=== PATIENT | female | born 1930 | race Caucasian/White ===

== ENCOUNTER 2017-04-19 18:41 | Inpatient (IN) | payer MEDICARE ==
[~2017-04-19] VITALS: Ht 157.5 cm; Wt 52.3 kg
[~2017-04-19 18:41] MED LIST: ACET325T21 PO; CELE200C PO; CYCL1DRO EACHEYE; DOCU-109 PO; FLUT9.9S NS; FURO20TA3 PO; GABA-585 PO; GABA-586 PO; HYDR-2758 PO; LISI10TA2 PO; METO-269 PO; METO50TA2 PO; OMEG1CAP38 PO; ONDA4TAB12 PO; POLY17PO29 PO; ROPI0.5T PO; SERT25TA PO; WARF-78 PO; WARF2TAB PO
[2017-04-19 19:49] LABS: BASO % 0 % (0-3); EOS % 2 % (0-3); HEMATOCRIT 38.6 % (36.0-47.0); LYMPH # 1.2 x10^3/uL (1.0-4.8); LYMPH % 19 % (24-48); MEAN CORPUSCULAR HEMOGLOBIN 29 pg (25-35); MEAN CORPUSCULAR HGB CONC 34 g/dL (31-37); MEAN CORPUSCULAR VOLUME 85 fL (79-100); MONO % 11 % (0-9); NEUT % 67 % (31-73); PLATELET COUNT 149 x10^3/uL (140-400); RED BLOOD COUNT 4.54 x10^6/uL (3.50-5.40); RED CELL DISTRIBUTION WIDTH 17.2 % (11.5-14.5); WHITE BLOOD COUNT 6.5 x10^3/uL (4.0-11.0)
[2017-04-19 20:03] LABS: CREATININE 0.7 mg/dL (0.6-1.0); GFR 79.7; POTASSIUM 3.6 mmol/L (3.5-5.1)
[2017-04-19 20:09] LABS: ALBUMIN 3.4 g/dL (3.4-5.0); ALBUMIN/GLOBULIN RATIO 0.9 (1.0-1.7); TOTAL PROTEIN 7.2 g/dL (6.4-8.2)
[2017-04-19] MEDS ORDERED: CONTRAST GIVEN MC PRN (21:15)
--- NOTE | 2017-04-19 21:18 | ED.ADGEN ---
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 Symptoms are nonexertional, chest pain radiates to jaw. No fever chills, nausea vomiting or sweats. No increased leg pain or swelling. Denies cough, sore throat difficulty swallowing. Denies history of CAD or DVT or PE. History of proximal A. fib, patient is not currently anticoagulated. She is accompanied at bedside by daughter. Review of Systems Review of Systems Review symptoms as per history of present illness. Current Medications Current Medications Current Medications Medications (Trade) Dose Ordered Sig/Cinthia Start Time Stop Time Status Last Admin Dose Admin Fentanyl Citrate (Fentanyl 2ml Vial) 25 mcg 1X ONCE 04/19/17 21:15 04/19/17 21:16 UNV Info (Do NOT chart on this entry -- for MONITORING) 1 each PRN DAILY PRN 04/19/17 21:15 04/21/17 21:14 Iohexol (Omnipaque 300 Mg/ml) 75 ml 1X ONCE 04/19/17 21:30 04/19/17 21:31 Ondansetron HCl (Zofran) 4 mg 1X ONCE 04/19/17 21:15 04/19/17 21:16 UNV Allergies Allergies Allergies Coded Allergies Type Severity Reaction Last Updated Verified Penicillins Allergy Intermediate 10/21/16 Yes Sulfa (Sulfonamide Antibiotics) Allergy Intermediate rash 06/16/15 Yes Physical Exam Physical Exam Constitutional: Well developed, well nourished, no acute distress, non-toxic appearance. HENT: Normocephalic, atraumatic, bilateral external ears normal, oropharynx moist, no oral exudates, nose normal. Eyes: PERRLA, EOMI, conjunctiva normal, no discharge. Neck: Normal range of motion, no tenderness, supple, no stridor. Cardiovascular:Heart rate regular rhythm, no murmur Lungs & Thorax: Bilateral breath sounds clear to auscultation Abdomen: Bowel sounds normal, soft, no tenderness, no masses, no pulsatile masses. Skin: Warm, dry, no erythema, no rash. Back: No tenderness, no CVA tenderness. Extremities: No tenderness, no cyanosis, no clubbing, ROM intact, no edema. Neurologic: Alert and oriented X 3, weakness of hands and lower extremities. Psychologic: Affect normal, judgement normal, mood normal. Current Patient Data Vital Signs Vital Signs Date Time Temp Pulse Resp B/P (MAP) Pulse Ox O2 Delivery O2 Flow Rate FiO2 04/19/17 20:14 112 18 97/71 (80) 95 Room Air 04/19/17 19:12 98.2 98.2 Lab Values Laboratory Tests Test 04/19/17 19:40 White Blood Count 6.5 x10^3/uL (4.0-11.0) Red Blood Count 4.54 x10^6/uL (3.50-5.40) Hemoglobin 13.0 g/dL (12.0-15.5) Hematocrit 38.6 % (36.0-47.0) Mean Corpuscular Volume 85 fL (79-100) Mean Corpuscular Hemoglobin 29 pg (25-35) Mean Corpuscular Hemoglobin Concent 34 g/dL (31-37) Red Cell Distribution Width 17.2 % (11.5-14.5) H Platelet Count 149 x10^3/uL (140-400) Neutrophils (%) (Auto) 67 % (31-73) Lymphocytes (%) (Auto) 19 % (24-48) L Monocytes (%) (Auto) 11 % (0-9) H Eosinophils (%) (Auto) 2 % (0-3) Basophils (%) (Auto) 0 % (0-3) Neutrophils # (Auto) 4.4 x10^3uL (1.8-7.7) Lymphocytes # (Auto) 1.2 x10^3/uL (1.0-4.8) Monocytes # (Auto) 0.7 x10^3/uL (0.0-1.1) Eosinophils # (Auto) 0.1 x10^3/uL (0.0-0.7) Basophils # (Auto) 0.0 x10^3/uL (0.0-0.2) Sodium Level 138 mmol/L (136-145) Potassium Level 3.6 mmol/L (3.5-5.1) Chloride Level 101 mmol/L (98-107) Carbon Dioxide Level 29 mmol/L (21-32) Anion Gap 8 (6-14) Blood Urea Nitrogen 48 mg/dL (7-20) H Creatinine 0.7 mg/dL (0.6-1.0) Estimated GFR (Cockcroft-Gault) 79.7 BUN/Creatinine Ratio 69 (6-20) H Glucose Level 98 mg/dL (70-99) Calcium Level 10.0 mg/dL (8.5-10.1) Total Bilirubin 1.0 mg/dL (0.2-1.0) Aspartate Amino Transferase (AST) 19 U/L (15-37) Alanine Aminotransferase (ALT) 17 U/L (14-59) Alkaline Phosphatase 112 U/L (46-116) Creatine Kinase 23 U/L (26-192) L Troponin I Quantitative < 0.017 ng/mL (0.000-0.055) Total Protein 7.2 g/dL (6.4-8.2) Albumin 3.4 g/dL (3.4-5.0) Albumin/Globulin Ratio 0.9 (1.0-1.7) L Laboratory Tests 04/19/17 19:40 Laboratory Tests 04/19/17 19:40 EKG EKG [EKG: Atrial flutter, rate 113, no acute ST-T wave changes.] Radiology/Procedures Radiology/Procedures [Chest x-ray: Mild pulmonary vascular congestion. CTA chest pending:] Course & Med Decision Making Course & Med Decision Making Pertinent Labs and Imaging studies reviewed. (See chart for details) [Chest pain shortness of breath. Troponin, negative, EKG A. fib. Patient is not currently anticoagulated. Chest pain initially resolved prior to ED arrival, but recurred while in the emergency department. Case endorsed to [facility] at 2100 anticipated admission.] Dragon Disclaimer Dragon Disclaimer This electronic medical record was generated, in whole or in part, using a voice recognition dictation system. NATA SANCHES DO Apr 19, 2017 21:18
[2017-04-19] MEDS ORDERED: ONDANSETRON PF 4 MG/2 ML VIAL. IV ONE (21:30)
[2017-04-19] MEDS ORDERED: fentaNYL PF VIAL 100 MCG/2 ML VIAL IV ONE (21:30)
[2017-04-19] MEDS ORDERED: IOHEXOL 300 MG/ML 75 ML VIAL IV ONE (21:30)
--- NOTE | 2017-04-19 21:49 | RAD ---
Exam performed: CT pulmonary angiogram of the chest with contrast. Date: 04/19/2017. Comparison: None available Indication: Shortness of and tachycardia with chest pain Technique: Helical CT scan of the chest was performed during intravenous administration of 75 cc of Omnipaque 300. Sagittal and coronal MIP images were obtained and reviewed Findings: The structures at the thoracic inlet including both lobes of the thyroid gland appear normal. Pulmonary arterial opacification is adequate to evaluate for pulmonary embolus. There is no evidence for pulmonary embolism. Cardiomegaly. No pericardial effusion is seen. No mediastinal or hilar lymphadenopathy is seen. Diffuse atheromatous calcification of the aorta and coronary arteries is seen. Interrogation of lungs demonstrates patchy peripheral interstitial opacities seen in both lungs probably chronic. Streaky linear bibasilar opacities are seen. No infiltrates or pleural effusions are seen. No pulmonary nodules are detected. Upper abdominal structures appear unremarkable. Probable nonobstructing left renal cysts Osseous structures appear intact. Impression: 1. Study is negative for pulmonary embolism. 2. Cardiomegaly. 3. Chronic interstitial changes in both lungs. 4. Probable nonobstructing left renal calculi PQRS Compliance Statement: One or more of the following individualized dose reduction techniques were utilized for this examination: 1. Automated exposure control 2. Adjustment of the mA and/or kV according to patient size 3. Use of iterative reconstruction technique Electronically signed by: Dilia Connell MD (04/19/2017 9:46 PM)
[2017-04-19] MEDS ORDERED: ONDANSETRON PF 4 MG/2 ML VIAL. IV PRN (23:00)
[2017-04-19] MEDS ORDERED: fentaNYL PF VIAL 100 MCG/2 ML VIAL IV PRN (23:00)
[2017-04-20] VITALS (7 sets, daily range): BP systolic 95–109; BP diastolic 53–86
[2017-04-20] MEDS ORDERED: ASPIRIN ENTERIC COATED 325 MG TABLET.DR. PO ONE (01:00)
[2017-04-20] MEDS ORDERED: METO25TA4 PO (01:36)
[2017-04-20] MEDS ORDERED: AMIN30LI2 PO (01:36)
[2017-04-20] MEDS ORDERED: CHLO4TAB PO (01:36)
[2017-04-20] MEDS ORDERED: WARF4TAB68 PO (01:36)
[2017-04-20] MEDS ORDERED: FURO-69 PO (01:36)
[2017-04-20] MEDS ORDERED: DEXT15DR5 EACHEYE (01:36)
--- NOTE | 2017-04-20 06:28 | EKG ---
[facility] [address] [place] [address] Test Date: 2017-04-19 Test Time: 19:01:49 Pat Name: YESICA RANDLE Department: Room: 260 1 Gender: F Group Contract Analyst: : [id number] Requested By: NATA SANCHES Order Number: [id number] Reading MD: Jamilah Hernandez Measurements Intervals [place] Rate: 113 P: [place]: QRS: -42 QRSD: 114 T: 120 QT: 344 QTc: 478 Interpretive Statements ATRIAL FIB./FLUTTER WITH RAPID VENTRICULAR RESPONSE ABNORMAL LEFT AXIS DEVIATION LEFT ANTERIOR FASCICULAR BLOCK LVH WITH REPOLARIZATION ABNORMALITY RI6.01 Unconfirmed report Compared to ECG 09/23/2016 11:50:45 No significant changes Electronically Signed On 04-22-2017 18:53:35 CDT by Jamilah Hernandez
[2017-04-20 06:29] LABS: BASO % 0 % (0-3); EOS % 1 % (0-3); HEMATOCRIT 35.6 % (36.0-47.0); HEMOGLOBIN 12.2 g/dL (12.0-15.5); LYMPH # 0.7 x10^3/uL (1.0-4.8); LYMPH % 11 % (24-48); MEAN CORPUSCULAR HEMOGLOBIN 29 pg (25-35); MEAN CORPUSCULAR HGB CONC 34 g/dL (31-37); MEAN CORPUSCULAR VOLUME 85 fL (79-100); MONO % 10 % (0-9); NEUT % 77 % (31-73); PLATELET COUNT 137 x10^3/uL (140-400); RED BLOOD COUNT 4.21 x10^6/uL (3.50-5.40); RED CELL DISTRIBUTION WIDTH 17.5 % (11.5-14.5); WHITE BLOOD COUNT 6.5 x10^3/uL (4.0-11.0)
[2017-04-20 06:42] LABS: CALCIUM 9.3 mg/dL (8.5-10.1); CREATININE 0.7 mg/dL (0.6-1.0); GFR 79.7; POTASSIUM 3.8 mmol/L (3.5-5.1)
[2017-04-20 07:23] LABS: CHOLESTEROL/HDL RATIO 2.6
--- NOTE | 2017-04-20 07:58 | RAD ---
Indication shortness of air. A single view of the chest was obtained and is compared to an examination 09/23/2016. There are chronic background changes of emphysema or fibrosis similar to the previous exam. There is mild enlargement of the cardiac silhouette. An acute or focal process is not seen. There is no pleural fluid or pneumothorax. IMPRESSION: Chronic changes. No acute process is seen in the chest
--- NOTE | 2017-04-20 09:35 | PDOC2 ---
CARDIAC CONSULT DATE OF CONSULT Date of Consult DATE: 04/20/17 TIME: 09:26 REASON FOR CONSULT Reason for Consult: Chest Pain REFERRING PHYSICIAN Referring Physician: Dr. Viera SOURCE Source: Chart review, Patient HISTORY OF PRESENT ILLNESS HISTORY OF PRESENT ILLNESS This is an 86 yo female who present from [facility] with complaint of chest pain. 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 Patient reports chest pain began yesterday evening while she was sitting watching television. Located across the central chest. Unable to specifically described the pain other than she "felt yucky." Pain non- radiating. Denies any associated dizziness, diaphoresis, palpitations, orthopnea , or SOA. Does reports some mild nausea associated with abdominal pain. Pain worsened by taking a deep breath. Patient does have a history of PAFIB and chronic systolic heart failure with an LVEF of 30-35%. Does not routinely follow with it infrastructure engineer. PAST MEDICAL HISTORY Cardiovascular: AFIB (paroxysmal ), CHF (systolic ), HTN, Hyperlipidemia Pulmonary: Other (LEROY) CENTRAL NERVOUS SYSTEM: Other (Guillian Tokio syndrome ) GI: No pertinent hx Heme/Onc: Cancer (breat ) Hepatobiliary: No pertinent hx Psych: Depression Musculoskeletal: Osteoarthritis Rheumatologic: No pertinent hx Infectious disease: No pertinent hx ENT: No pertinent hx Renal/: Acute renal failure (with temp dialysis ) Endocrine: No pertinent hx Dermatology: No pertinent hx PAST SURGICAL HISTORY Past Surgical History: Other (right breast lumpectomy ) FAMILY HISTORY Family History: Cancer SOCIAL HISTORY Smoke: No ALCOHOL: none Drugs: None Lives: [facility] ([facility] for rehab ) CURRENT MEDICATIONS CURRENT MEDICATIONS Current Medications Medications (Trade) Dose Ordered Sig/Cinthia Route PRN Reason Start Time Stop Time Status Last Admin Dose Admin Iohexol (Omnipaque 300 Mg/ml) 75 ml 1X ONCE IV 04/19/17 21:30 04/19/17 21:31 DC 04/19/17 21:22 Fentanyl Citrate (Fentanyl 2ml Vial) 25 mcg 1X ONCE IV 04/19/17 21:30 04/19/17 21:31 DC 04/19/17 21:17 Ondansetron HCl (Zofran) 4 mg 1X ONCE IV 04/19/17 21:30 04/19/17 21:31 DC 04/19/17 21:20 Aspirin (Ecotrin) 325 mg 1X ONCE PO 04/20/17 01:00 04/20/17 01:01 DC 04/20/17 01:19 ALLERGIES ALLERGIES: Coded Allergies: Penicillins (Verified Allergy, Intermediate, 10/21/16) Sulfa (Sulfonamide Antibiotics) (Verified Allergy, Intermediate, rash, 06/16) ROS Review of System 14 point ROS conducted with pertinent positives noted above in HPI. PHYSICAL EXAM General: Alert, Oriented X3, Cooperative, No acute distress Lungs: Clear to auscultation, Other (diminished bases ) Heart: Normal S1, Normal S2, Other (soft systolic murmur; tele AFIB with RVR) Extremities: Normal pulses, Other (trace bilateral LE edema ) Skin: No significant lesion Neuro: Normal speech, Sensation intact Psych/Mental Status: Mental status NL, Other (forgetful ) MUSCULOSKELETAL: Osteoarthritic changes both hands VITALS VITALS Vital Signs Date Time Temp Pulse Resp B/P (MAP) Pulse Ox O2 Delivery O2 Flow Rate FiO2 04/20/17 07:00 97.9 121 18 95/75 (82) 91 Nasal Cannula 2.0 97.9 LABS Lab: Laboratory Tests Test 04/19/17 19:40 04/20/17 06:05 White Blood Count 6.5 x10^3/uL (4.0-11.0) 6.5 x10^3/uL (4.0-11.0) Red Blood Count 4.54 x10^6/uL (3.50-5.40) 4.21 x10^6/uL (3.50-5.40) Hemoglobin 13.0 g/dL (12.0-15.5) 12.2 g/dL (12.0-15.5) Hematocrit 38.6 % (36.0-47.0) 35.6 % (36.0-47.0) Mean Corpuscular Volume 85 fL (79-100) 85 fL (79-100) Mean Corpuscular Hemoglobin 29 pg (25-35) 29 pg (25-35) Mean Corpuscular Hemoglobin Concent 34 g/dL (31-37) 34 g/dL (31-37) Red Cell Distribution Width 17.2 % (11.5-14.5) 17.5 % (11.5-14.5) Platelet Count 149 x10^3/uL (140-400) 137 x10^3/uL (140-400) Neutrophils (%) (Auto) 67 % (31-73) 77 % (31-73) Lymphocytes (%) (Auto) 19 % (24-48) 11 % (24-48) Monocytes (%) (Auto) 11 % (0-9) 10 % (0-9) Eosinophils (%) (Auto) 2 % (0-3) 1 % (0-3) Basophils (%) (Auto) 0 % (0-3) 0 % (0-3) Neutrophils # (Auto) 4.4 x10^3uL (1.8-7.7) 5.0 x10^3uL (1.8-7.7) Lymphocytes # (Auto) 1.2 x10^3/uL (1.0-4.8) 0.7 x10^3/uL (1.0-4.8) Monocytes # (Auto) 0.7 x10^3/uL (0.0-1.1) 0.6 x10^3/uL (0.0-1.1) Eosinophils # (Auto) 0.1 x10^3/uL (0.0-0.7) 0.1 x10^3/uL (0.0-0.7) Basophils # (Auto) 0.0 x10^3/uL (0.0-0.2) 0.0 x10^3/uL (0.0-0.2) Sodium Level 138 mmol/L (136-145) 140 mmol/L (136-145) Potassium Level 3.6 mmol/L (3.5-5.1) 3.8 mmol/L (3.5-5.1) Chloride Level 101 mmol/L (98-107) 103 mmol/L (98-107) Carbon Dioxide Level 29 mmol/L (21-32) 31 mmol/L (21-32) Anion Gap 8 (6-14) 6 (6-14) Blood Urea Nitrogen 48 mg/dL (7-20) 38 mg/dL (7-20) Creatinine 0.7 mg/dL (0.6-1.0) 0.7 mg/dL (0.6-1.0) Estimated GFR (Cockcroft-Gault) 79.7 79.7 BUN/Creatinine Ratio 69 (6-20) Glucose Level 98 mg/dL (70-99) 96 mg/dL (70-99) Calcium Level 10.0 mg/dL (8.5-10.1) 9.3 mg/dL (8.5-10.1) Total Bilirubin 1.0 mg/dL (0.2-1.0) Aspartate Amino Transf (AST/SGOT) 19 U/L (15-37) Alanine Aminotransferase (ALT/SGPT) 17 U/L (14-59) Alkaline Phosphatase 112 U/L (46-116) Creatine Kinase 23 U/L (26-192) Troponin I Quantitative < 0.017 ng/mL (0.000-0.055) < 0.017 ng/mL (0.000-0.055) Total Protein 7.2 g/dL (6.4-8.2) Albumin 3.4 g/dL (3.4-5.0) Albumin/Globulin Ratio 0.9 (1.0-1.7) Triglycerides Level 64 mg/dL (0-150) Cholesterol Level 123 mg/dL (0-200) LDL Cholesterol, Calculated 63 mg/dL (0-100) VLDL Cholesterol, Calculated 13 mg/dL (0-40) Non-HDL Cholesterol Calculated 76 mg/dL (0-129) HDL Cholesterol 47 mg/dL (40-60) Cholesterol/HDL Ratio 2.6 ECHOCARDIOGRAM ECHOCARDIOGRAM <Conclusion> Left ventricle systolic function is moderately impaired. The Ejection Fraction is estimated at 30-35%. The left atrium is mildly dilated. Mild mitral regurgitation. Mild tricuspid regurgitation. The PA pressure was estimated at 29 mmHg. There is no evidence of significant pericardial effusion. DATE: 08/03/16 2474 ASSESSMENT/PLAN ASSESSMENT/PLAN 1. Chest Pain, atypical troponin series normal-AMI ruled out. LVEF 30-35% 07/29. Outpatient ischemic workup initially planned, but has not been conducted as patient has been in rehab suspect pain is pleuritic in nature as it is reproducible with deep breath, but will consider for MPI when HR better controlled given risk factors and unknown etiology of CMP CT chest negative for PE check echo to r/o any new WMA; further recommendations pending diagnostics. 2. AFIB with RVR with h/o PAFIB did not received BB last night or this morning. Will resume now if remains elevated, will use IV Dig as BP is marginal on warfarin for stroke prophylaxis. check INR 3. Chronic systolic heart failure with cardiomyopathy clinically compensated continue BB and diuretic therapy as BP allows No KELVIN with hypotension 4. Hypertension low-normotensive hold antiHTN therapy as warranted 5. Hyperlipidemia lipids on goal 6. LEROY non-compliant with CPAP 7. 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
[2017-04-20] MEDS: FUROSEMIDE 20 MG TABLET PO SCH ×2 (10:27→14:28)
[2017-04-20] MEDS: METOPROLOL TART IMMED RELEASE 25 MG TABLET. PO SCH ×2 (10:28→21:10)
[2017-04-20 11:27] LABS: INR 2.9 (0.8-1.1); PROTHROMBIN TIME PATIENT 28.6 SEC (11.7-14.0)
--- NOTE | 2017-04-20 11:44 | CARD ---
APPROVED REPORT EXAM: Two-dimensional and M-mode echocardiogram with Doppler and color Doppler. Other Information Quality : Average Rhythm : Atrial Fibrillation INDICATION Atrial Fibrillation Chest Pain 2D DIMENSIONS Left Atrium(2D)4.2 (1.6-4.0cm)IVSd1.0 (0.7-1.1cm) Aortic Root(2D)2.8 (2.0-3.7cm)LVDd4.6 (3.9-5.9cm) LVOT Diameter2.2 (1.8-2.4cm)PWd1.0 (0.7-1.1cm) LVDs4.5 (2.5-4.0cm)FS (%) 1.7 % SV3.8 mlLVEF(%)3.9 (>50%) Aortic Valve AoV Peak Baljinder.63.9cm/sAoV VTI8.6cm AO Peak GR.1.6mmHgLVOT VTI 6.08cm AO Mean GR.1mmHg Mitral Valve MV E Pxzyflhq33.6cm/sMV E Peak Gr.2mmHg MV DECEL [id number] MVA (PHT)4.40cm2 Tricuspid Valve TR P. Lsexrfal954ws/sRAP [id number] TR Peak Gr.[id number] LEFT VENTRICLE The left ventricle is normal size. There is normal left ventricular wall thickness. Left ventricle sy stolic function is severely impaired. The Ejection Fraction is 10-15%. There is severe global hypokin esis with akinesis of the inferior segments. Moderate to severe diastolic dysfunction. RIGHT VENTRICLE The right ventricle is normal size. The right ventricular systolic function is normal. ATRIA The left atrium is borderline dilated. The right atrium size is normal. The interatrial septum is int act with no evidence for an atrial septal defect or patent foramen ovale as noted on 2-D or Doppler i maging. AORTIC VALVE The aortic valve is mildly calcified. The aortic valve is trileaflet. Doppler and Color Flow revealed no significant aortic regurgitation. There is no significant aortic valvular stenosis. MITRAL VALVE The mitral valve is normal in structure. There is no mitral valve stenosis. Doppler and Color Flow re vealed mild mitral regurgitation. TRICUSPID VALVE The tricuspid valve is normal in structure and function. Doppler and Color Flow revealed mild to mode rate tricuspid regurgitation. The PA pressure was estimated at 27 mmHg. There is no tricuspid valve s tenosis. PULMONIC VALVE The pulmonic valve is not well visualized. Doppler and Color Flow revealed trace to mild pulmonic azam vular regurgitation. There is no pulmonic valvular stenosis. GREAT VESSELS The aortic root is normal in size. The IVC is normal in size and collapses >50% with inspiration. PERICARDIAL EFFUSION There is no evidence of significant pericardial effusion. Critical Notification Critical Value: No <Conclusion> Left ventricle systolic function is severely impaired. The Ejection Fraction is 10-15%. There is severe global hypokinesis with akinesis of the inferior segments. Moderate to severe diastolic dysfunction.
[2017-04-20] MEDS ORDERED: ONDANSETRON ODT 4 MG TAB.RAPDIS. PO PRN (13:00)
[2017-04-20] MEDS ORDERED: ACETAMINOPHEN 325 MG TABLET. PO PRN (13:00)
[2017-04-20] MEDS ORDERED: POLYETHYLENE GLYCOL 3350 17 GM PACKET. PO PRN (13:00)
[2017-04-20] MEDS ORDERED: POLYVINYL ALCOHOL 1.4% OPHTH SOLUTION 15ML BOTTLE. OU PRN (14:00)
[2017-04-20] MEDS: OMEGA-3 FATTY ACIDS/FISH OIL 1,000 MG CAPSULE. PO SCH (14:00)
[2017-04-20] MEDS: GABAPENTIN 300 MG CAPSULE. PO SCH ×2 (14:28→21:09)
[2017-04-20] MEDS: DOCUSATE SODIUM 100 MG CAPSULE. PO SCH (14:28)
[2017-04-20] MEDS: SERTRALINE 25 MG TABLET. PO SCH (14:32)
[2017-04-20] MEDS ORDERED: WARFARIN 2 MG TABLET. PO SCH (16:00)
--- NOTE | 2017-04-20 16:05 | HP ---
ADMIT DATE: 04/20/2017 CHIEF COMPLAINT: Weakness, shortness of breath, chest pain. 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 The patient was transferred to the Emergency Room secondary to chest pain, shortness of breath. Also, was noted to have AFib, which apparently is a new diagnosis for her. The patient is now admitted to the [facility] for further management and care. Echocardiogram obtained earlier today reveals EF of about 10% and moderate severe diastolic dysfunction. PAST MEDICAL HISTORY: CHF, Guillain-Hilo, sleep apnea, and hypertension. PAST SURGICAL HISTORY: She is status post right partial mastectomy for breast cancer, status post appendectomy. FAMILY HISTORY: Noncontributory. SOCIAL HISTORY: Previously living with her . No toxic habits, quit smoking 3 decades ago. ALLERGIES: PENICILLINS AND SULFA. HOME MEDICATIONS: Reconciled with MAR. REVIEW OF SYSTEMS: The patient relates that her chest pain is persisting across both sides, center, and lower chest. Denies any shortness of breath or other symptoms. PHYSICAL EXAMINATION: VITAL SIGNS: From today show a blood pressure of 105/86, heart rate at 26, respiratory rate at 17. She is afebrile. GENERAL: This is an 86-year-old frail-appearing woman, alert, in no acute distress. HEENT: Shows no scleral icterus. NECK: Supple. LUNGS: Clear to auscultation bilaterally. HEART: Tachycardic. ABDOMEN: Positive bowel sounds, soft, nontender. EXTREMITIES: Show no edema. SKIN: Warm, soft, and dry. NEUROLOGIC: She is able to move her left arm freely. Right arm without proximal muscle strength. LABORATORY DATA: CBC with a WBC of 6.5, hemoglobin 12.2, platelets of 137. Chemistries with a BUN and creatinine of 38.0 and 0.7, normal electrolytes. Negative troponins x 2. Normal LFTs. IMAGING DATA: CTA of the chest from today shows negative for pulmonary embolism, positive cardiomegaly, chronic interstitial changes in both lungs. Echocardiogram shows an EF of 10-15%, moderate severe diastolic dysfunction, severe global hypokinesis with akinesis of the inferior segments. ASSESSMENT AND PLAN: The patient is an 86-year-old woman with a severely worsened congestive heart failure. There is no sign of acute cardiac issues with negative troponins and electrocardiograms. Cardiac consult has been requested. Currently on nitroglycerin drip. Situation appears fairly severe and critical for her. This was discussed with her and her . The patient's mental status currently is not completely clear, she has perseverating on issues and does not seem to grasp the discussion. is a bit better, and after a long discussion agreeable to DNI, but want chest compressions. Guillain-Hilo is persisting and keeping her essentially wheelchair bound with ADL help required. We will monitor the situation. We will continue all her home medications including pain medications and requip for restless leg syndrome. REJI WILLETT MD DR: UR/nts JOB#: [id number] / [id number] ISIAH Bishop MD MTDD
[2017-04-20] MEDS: FLUTICASONE 50MCG/NASAL SPRAY 16GM BOTTLE. NS SCH (17:10)
--- NOTE | 2017-04-20 17:56 | PDOC2 ---
PALLIATIVE CARE Palliative Care Note Palliative Care Consult requested by Dr. Ornelas to assist with plan of care. Diagnosis: CHF EF 10-15% decreased from 30-35% in 2016. 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 Per family patient was making progress with PT/OT until recently when she became increasingly weak and having periods of confusion/chest pain. . Met with Yuri, daughter Tejal and her ; brother, sister and grandson. Reviewed above medical condition. Discussed Code Status; Family requests change of code status from DNR/DNI to no intubation. Informed that likely would be unsuccessful without oxygenated blood being circulated. Family understands risk of fracture/injury to ribs with chest compressions. Discussed options for care: Aggressive care vs comfort care allowing patient to peacefully and naturally. vs limitation of aggressive care. Family is familiar with Hospice/comfort care. They know of several hospice agencies used in their family and will decide on agency they prefer Discussed where comfort care can be provided; Home with hospice vs fdc with hospice. Family has been paying for some room/board privately. ?? out of skilled days. Spoke with daughter after meeting. Prior to this discussion about resuscitation parents have always declined resuscitation. Daughter feels her father is overwhelmed and they will continue to have more discussion about this wishes. Plan: Comfort care. Family undecided about where this will be provided. Will also decide hospice agency and let staff know. DNI only. (family has been informed of risk of injury with chest compression and unlikely would be successful with only chest compression and no oxygenation.) Spoke with Zulma BARRIOS who will follow-up with discharge plan ELEANOR MATHIS Apr 20, 2017 17:56
[2017-04-20 19:48] LABS: BILIRUBIN,URINE NEGATIVE (NEG); GLUCOSE,URINE NEGATIVE (NEG); NITRITE,URINE NEGATIVE (NEG); PROTEIN,URINE NEGATIVE (NEG-TRACE)
[2017-04-20 19:58] LABS: BACTERIA,URINE MODERATE /HPF (0-FEW); SQUAMOUS EPITHELIAL CELL,UR OCC /LPF
[2017-04-20] MEDS: rOPINIRole 0.25 MG TABLET. PO SCH (21:10)
[2017-04-20] MEDS: cycloSPORINE 0.05% OPTH 1 DROP DROPERETTE OU SCH (22:10)
[2017-04-21 03:11] VITALS: BP 88/55
[2017-04-21 07:59] VITALS: BP 105/58
--- NOTE | 2017-04-21 09:35 | PDOC ---
PROGRESS NOTES Chief Complaint Chief Complaint CHF UTI ASSESSMENT AND PLAN: 1. CHF: echo with EF 10-15%, mod severe diastolic dysfxn. medical optimization as per cardiology team 2. 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 3. UTI: empiric ceftriax. await culture 3. Chronic pain, Restless leg syndrome: cont home meds 4. Depression: on Sertraline 5. Dispo: back to [facility] [place] with Hospice in a day or 2 with stabilization of cardiac status History of Present Illness History of Present Illness in good spirits, c/o pain in pelvis. confused per medical staff assistant Vitals Vitals Vital Signs Date Time Temp Pulse Resp B/P (MAP) Pulse Ox O2 Delivery O2 Flow Rate FiO2 04/21/17 07:59 98.2 110 14 105/58 (74) 95 Nasal Cannula 2.0 98.2 Physical Exam General: Alert, Oriented X3, Cooperative, No acute distress Heart: Normal S1, Normal S2, Other (soft systolic murmur; tele AFIB with RVR) Lungs: Clear Extremities: Normal pulses, Other (trace bilateral LE edema ) Skin: No significant lesion Labs LABS Laboratory Tests Test 04/20/17 10:55 04/20/17 14:45 Prothrombin Time 28.6 SEC (11.7-14.0) Prothromb Time International Ratio 2.9 (0.8-1.1) Troponin I Quantitative < 0.017 ng/mL (0.000-0.055) Urine Color Yellow Urine Clarity Clear Urine pH 7.0 Urine Specific [place] 1.020 Urine Protein Negative mg/dL (NEG-TRACE) Urine Glucose (UA) Negative mg/dL (NEG) Urine Ketones (Stick) Negative mg/dL (NEG) Urine Blood Trace (NEG) Urine Nitrite Negative (NEG) Urine Bilirubin Negative (NEG) Urine Urobilinogen Dipstick 1.0 mg/dL (0.2 mg/dL) Urine Leukocyte Esterase Large (NEG) Urine RBC 1-2 /HPF (0-2) Urine WBC 5-10 /HPF (0-4) Urine Squamous Epithelial Cells Occ /LPF Urine Amorphous Sediment Present /HPF Urine Bacteria Moderate /HPF (0-FEW) Urine Mucus Slight /LPF REJI WILLETT MD Apr 21, 2017 09:35
[2017-04-21] MEDS: OMEGA-3 FATTY ACIDS/FISH OIL 1,000 MG CAPSULE. PO SCH (09:39)
[2017-04-21] MEDS: FUROSEMIDE 20 MG TABLET PO SCH ×2 (09:40→15:29)
[2017-04-21] MEDS: GABAPENTIN 300 MG CAPSULE. PO SCH ×3 (09:40→21:27)
[2017-04-21] MEDS: FLUTICASONE 50MCG/NASAL SPRAY 16GM BOTTLE. NS SCH (09:40)
[2017-04-21] MEDS: DOCUSATE SODIUM 100 MG CAPSULE. PO SCH (09:40)
[2017-04-21] MEDS: METOPROLOL TART IMMED RELEASE 25 MG TABLET. PO SCH ×2 (09:43→21:00)
[2017-04-21 11:00] VITALS: BP 95/54
[2017-04-21 15:00] VITALS: BP 102/51
--- NOTE | 2017-04-21 15:11 | PDOC ---
CARDIO Progress Notes Date and Time Date of Service 04/21/17 Time of Evaluation 1350 Subjective Subjective: No Chest Pain, No shortness of breath, No Palpitations, No Dizziness Vitals Vitals Vital Signs Date Time Temp Pulse Resp B/P (MAP) Pulse Ox O2 Delivery O2 Flow Rate FiO2 04/21/17 11:00 98.3 88 18 95/54 (68) 98 Room Air 98.3 04/21/17 08:00 2.0 Weight Weight [ ] Input and Output Intake and Output Intake and Output 04/21/17 07:00 Intake Total 1215 ml Output Total 1425 ml Balance -210 ml Intake Oral 1215 ml Output Urine Total 1425 ml # Bowel Movements 1 Physical Exam HEENT: Neck Supple W Full Motion Chest: Symmetric LUNGS: Clear to Auscultation Heart: S1S2, RRR, irregularly irregular (tele AFIB rate 90-100) Abdomen: Soft N/T Extremities: No Edema, No Calf Tenderness Neurology: alert, oriented, follow commands, confused (intermittently ) Assessment Assessment 1. 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 2. AFIB, chronic rate better controlled with resumption of BB. If HR cosistently >115, will give dose of Digoxin 0.125mg IV x1. on warfarin for stroke prophylaxis with therapeutic INR 3. Hypertension low-normotensive 4. Hyperlipidemia lipids on goal 5. LEROY non-compliant with CPAP 6. 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
[2017-04-21] MEDS: SERTRALINE 25 MG TABLET. PO SCH (15:29)
[2017-04-21 16:09] LABS: INR 2.3 (0.8-1.1); PROTHROMBIN TIME PATIENT 24.1 SEC (11.7-14.0)
[2017-04-21] MEDS: WARFARIN 2.5 MG TABLET. PO SCH (16:58)
[2017-04-21] MEDS: WARFARIN 2 MG TABLET. PO SCH (16:59)
[2017-04-21 19:40] VITALS: BP 94/49
--- NOTE | 2017-04-21 20:49 | ACF ---
Admission Forms Criteria HEART FAILURE: COMMON COMPLICATIONS (Place 'X' for any and all applicable criteria): Ongoing inpatient care may be indicated for heart failure with 1 or more of the following (1)(2)(3)(4)(5)(6)(7)(8): [ ]I. New-onset heart failure [ ]II. Acute cardiac ischemia causing or associated with failure [ ]III. Ongoing need for care for primary condition requiring frequent therapy adjustments because of changes in cardiac function (eg, drug dosage changes for drugs that are renally metabolized) [X]IV. Complications of heart failure, including 1 or more of the following: [ ]a) Hemodynamic instability [ ]b) Pericardial effusion [ ]c) Symptomatic pleural effusion [ ]d) Hypoxemia [ ]e) Tachypnea [X]f) Dyspnea [ ]g) Syncope [ ]h) Altered mental status [ ]i) Acute renal insufficiency that is severe (reduction of more than 50% in estimated glomerular filtration rate from baseline) or progressive reduction of more than 25% in estimated glomerular filtration rate from baseline, with creatinine continuing to rise) [ ]j) Debilitating anasarca (eg tissue breakdown with infection, inability to void due to edema) (E) [ ]k) Clinically significant metabolic abnormalities due to heart failure (eg, new-onset metabolic acidosis) Extended stay may be needed until ALL of the following are present (1)(3)(18)(41 )(55) [ ]a) Hemodynamic stability [ ]b) Stable and effective diuretic regimen established (or patient on stable dialysis regimen if in chronic renal failure) [ ]c) Volume status acceptable on oral medication [ ]d) Breathing comfortably at rest [ ]e) Saturation of arterial oxygen greater than 90% or at acceptable baseline [ ]f) Pulmonary edema absent or improved [ ]g) Peripheral or sacral edema absent or improved [ ]h) Renal function stable and manageable at a lower level of care [ ]i) Complications (eg, pleural effusion) resolved or manageable at a lower level of care [ ]g) Patient or caregiver has received written discharge instructions or educational material addressing activity level, diet, discharge medications, follow-up appointment, weight monitoring, and what to do if symptoms worsen.(25)(26) The original [facility] [address] content created by [employer] has been revised. The portions of the content which have been revised are identified through the use of italic text, and [facility] has neither reviewed nor approved the modified material.All other unmodified content is copyright [facility]. Please see references footnoted in the original [facility] edition 2015 Admission Criteria Met?: Yes PATRICE CORTEZ Apr 21, 2017 20:49
[2017-04-21] MEDS: rOPINIRole 0.25 MG TABLET. PO SCH (21:27)
[2017-04-21] MEDS: cycloSPORINE 0.05% OPTH 1 DROP DROPERETTE OU SCH (21:27)
[2017-04-21 23:44] VITALS: BP 95/51
[2017-04-22 03:05] VITALS: BP 151/55
[2017-04-22 05:36] LABS: PROTHROMBIN TIME PATIENT 21.7 SEC (11.7-14.0)
[2017-04-22 07:00] VITALS: BP 104/57
[2017-04-22] MEDS: FUROSEMIDE 20 MG TABLET PO SCH ×2 (08:21→15:13)
[2017-04-22] MEDS: FLUTICASONE 50MCG/NASAL SPRAY 16GM BOTTLE. NS SCH (08:21)
[2017-04-22] MEDS: DOCUSATE SODIUM 100 MG CAPSULE. PO SCH (08:21)
[2017-04-22] MEDS: SERTRALINE 25 MG TABLET. PO SCH (08:21)
[2017-04-22] MEDS: GABAPENTIN 300 MG CAPSULE. PO SCH ×3 (08:22→21:52)
[2017-04-22] MEDS: METOPROLOL TART IMMED RELEASE 25 MG TABLET. PO SCH ×2 (08:22→21:53)
[2017-04-22] MEDS: OMEGA-3 FATTY ACIDS/FISH OIL 1,000 MG CAPSULE. PO SCH (08:23)
[2017-04-22 11:10] VITALS: BP 95/50
--- NOTE | 2017-04-22 12:43 | PDOC ---
PROGRESS NOTES Chief Complaint Chief Complaint CHF UTI ASSESSMENT AND PLAN: 1. CHF: echo with EF 10-15%,medical optimization, continue current care. 2. 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 3. UTI: empiric ceftriaxone. await culture 3. Chronic pain, Restless leg syndrome: cont home medications. 4. Depression: on Sertraline 5. Dispo: back to [facility] [place] when stable. History of Present Illness History of Present Illness d/w family, plan explained no acute issues Vitals Vitals Vital Signs Date Time Temp Pulse Resp B/P (MAP) Pulse Ox O2 Delivery O2 Flow Rate FiO2 04/22/17 11:10 97.7 88 17 95/50 (65) 91 Nasal Cannula 97.7 04/22/17 08:00 3.0 Physical Exam General: Alert, Oriented X3, Cooperative, No acute distress Heart: Normal S1, Normal S2, Other (soft systolic murmur; tele AFIB with RVR) Lungs: Clear Extremities: Normal pulses, Other (trace bilateral LE edema ) Skin: No significant lesion Labs LABS Laboratory Tests Test 04/21/17 14:40 04/22/17 05:00 Prothrombin Time 24.1 SEC (11.7-14.0) 21.7 SEC (11.7-14.0) Prothromb Time International Ratio 2.3 (0.8-1.1) 2.0 (0.8-1.1) Comment Review of Relevant I have reviewed the following items nina (where applicable) has been applied. Labs Laboratory Tests Test 04/20/17 14:45 04/21/17 14:40 04/22/17 05:00 Urine Color Yellow Urine Clarity Clear Urine pH 7.0 Urine Specific [place] 1.020 Urine Protein Negative mg/dL (NEG-TRACE) Urine Glucose (UA) Negative mg/dL (NEG) Urine Ketones (Stick) Negative mg/dL (NEG) Urine Blood Trace (NEG) Urine Nitrite Negative (NEG) Urine Bilirubin Negative (NEG) Urine Urobilinogen Dipstick 1.0 mg/dL (0.2 mg/dL) Urine Leukocyte Esterase Large (NEG) Urine RBC 1-2 /HPF (0-2) Urine WBC 5-10 /HPF (0-4) Urine Squamous Epithelial Cells Occ /LPF Urine Amorphous Sediment Present /HPF Urine Bacteria Moderate /HPF (0-FEW) Urine Mucus Slight /LPF Prothrombin Time 24.1 SEC (11.7-14.0) 21.7 SEC (11.7-14.0) Prothromb Time International Ratio 2.3 (0.8-1.1) 2.0 (0.8-1.1) Laboratory Tests Test 04/21/17 14:40 04/22/17 05:00 Prothrombin Time 24.1 SEC (11.7-14.0) 21.7 SEC (11.7-14.0) Prothromb Time International Ratio 2.3 (0.8-1.1) 2.0 (0.8-1.1) Medications Current Medications Iohexol (Omnipaque 300 Mg/ml) 75 ml 1X ONCE IV Last administered on 04/19/17 21:22; Start 04/19/17 at 21:30; Stop 04/19/17 at 21:31; Status DC Info (Do NOT chart on this entry -- for MONITORING) 1 each PRN DAILY PRN MC SEE COMMENTS; Start 04/19/17 at 21:15; Stop 04/21/17 at 21:14; Status DC Fentanyl Citrate (Fentanyl 2ml Vial) 25 mcg 1X ONCE IV Last administered on 21:17; Start 04/19/17 at 21:30; Stop 04/19/17 at 21:31; Status DC Ondansetron HCl (Zofran) 4 mg 1X ONCE IV Last administered on 04/19/17 21:20; Start 04/19/17 at 21:30; Stop 04/19/17 at 21:31; Status DC Ondansetron HCl (Zofran) 4 mg PRN Q8HRS PRN IV NAUSEA/VOMITING; Start 04/19/17 at 23:00; Stop 04/20/17 at 22:59; Status DC Fentanyl Citrate (Fentanyl 2ml Vial) 50 mcg PRN Q1HR PRN IV SEVERE PAIN; Start 04/19/17 at 23:00; Stop 04/20/17 at 22:59; Status DC Aspirin (Ecotrin) 325 mg 1X ONCE PO Last administered on 04/20/17 01:19; Start 04/20/17 at 01:00; Stop 04/20/17 at 01:01; Status DC Furosemide (Lasix) 20 mg BID92 PO Last administered on 04/22/17 08:21; Start 04/20/17 at 10:30 Metoprolol Tartrate (Lopressor) 6.25 mg BID PO Last administered on 04/22/17 08:22; Start 04/20/17 at 10:30 Acetaminophen (Tylenol) 650 mg PRN Q4HRS PRN PO PAIN; Start 04/20/17 at 13:00 Cyclosporine (Restasis) 1 drop HS OU Last administered on 04/21/17 21:27; Start 04/20/17 at 21:00 Docusate Sodium (Colace) 100 mg DAILY PO Last administered on 04/22/17 08:21; Start 04/20/17 at 14:00 Ondansetron HCl (Zofran Odt) 4 mg PRN Q6HRS PRN PO nausea; Start 04/20/17 at 13: 00 Polyethylene Glycol (miraLAX PACKET) 17 gm PRN DAILY PRN PO CONSTIPATION; Start 04/20/17 at 13:00 Sertraline HCl (Zoloft) 75 mg DAILY PO Last administered on 04/22/17 08:21; Start 04/20/17 at 14:00 Warfarin Sodium (Coumadin) 2 mg 1X WARF PO Last administered on 04/20/17 17:09 ; Start 04/20/17 at 16:00; Stop 04/21/17 at 14:27; Status DC Warfarin Sodium (Coumadin) 2.5 mg DAILY16 PO Last administered on 04/21/17 16: 58; Start 04/21/17 at 16:00 Artificial Tears (Artificial Tears) 1 drop PRN Q15MIN PRN OU DRY EYE; Start 04/20/17 at 14:00 Fluticasone Propionate (Flonase) 2 spray DAILY NS Last administered on 08:21; Start 04/20/17 at 14:00 Gabapentin (Neurontin) 600 mg TID PO Last administered on 04/22/17 08:22; Start 04/20/17 at 14:00 Fish Oil (Fish Oil) 2,000 mg DAILY PO Last administered on 04/22/17 08:23; Start 04/20/17 at 14:00 Ropinirole HCl (Requip) 0.5 mg QHS PO Last administered on 04/21/17 21:27; Start 04/20/17 at 21:00 Warfarin Sodium (Coumadin Per Physician) 1 each PRN DAILY PRN MC SEE COMMENTS; Start 04/20/17 at 13:45; Stop 04/21/17 at 14:27; Status DC Warfarin Sodium (Coumadin) 2 mg DAILY16 PO Last administered on 04/21/17 16:59 ; Start 04/21/17 at 16:00 Warfarin Sodium (Coumadin Per Pharmacy) 1 each PRN DAILY PRN MC SEE COMMENTS Last administered on 04/22/17 10:36; Start 04/21/17 at 14:30 Active Scripts Active Coumadin (Warfarin Sodium) 2 Mg Tablet 2 Mg PO 1X WARF 30 Days Reported Pro-Stat Liquid (Amino Acids/Protein Hydrolys) 30 Ml Liquid.pkt 30 Ml PO BID Metoprolol Tartrate 25 Mg Tablet 6.25 Mg PO BID Lasix (Furosemide) 20 Mg Tablet 20 Mg PO BID Coumadin (Warfarin Sodium) 4 Mg Tablet 4.5 Mg PO DAILY Chlor-Trimeton (Chlorpheniramine Maleate) 4 Mg Tablet 4 Mg PO DAILY Artificial Tears Eye Drops (Dextran 70/Hypromellose) 15 Ml Drops 1 Drop EACHEYE PRN PRN Zoloft (Sertraline Hcl) 25 Mg Tablet 3 Tab PO DAILY Ondansetron Odt (Ondansetron) 4 Mg Tab.rapdis 1 Tab PO PRN Q6-8HRS Hydrocodone-Apap 5-325 (Hydrocodone Bit/Acetaminophen) 1 Each Tablet 0.5 Tab PO PRN Q6HRS PRN Gabapentin 300 Mg Capsule 600 Mg PO TID Colace (Docusate Sodium) 100 Mg Capsule 1 Cap PO DAILY Celebrex (Celecoxib) 200 Mg Capsule 1 Cap PO BID Restasis (Cyclosporine) 1 Each Droperette 1 Drop EACHEYE HS Flonase Allergy Relief (Fluticasone Propionate) 9.9 Ml [place].susp 2 Sprays NS DAILY Acetaminophen 325 Mg Tablet 650 Mg PO Q4HRS PRN [place] 3 Fish Oil Softgel ([place]-3 Fatty Acids/Fish Oil) 1 Each Capsule.dr 2 Each PO DAILY Miralax (Polyethylene Glycol 3350) 17 Gm Powd.pack 1 Packet PO DAILY PRN Requip (Ropinirole Hcl) 0.5 Mg Tablet 1 Tab PO QHS Vitals/I & O Vital Sign - Last 24 Hours 04/21/17 04/21/17 04/21/17 04/21/17 15:00 19:40 20:00 21:00 Temp 98.4 98.2 98.4 98.2 Pulse 75 72 50 Resp 20 18 B/P (MAP) 102/51 (68) 94/49 (64) 94/49 Pulse Ox 96 100 O2 Delivery Room Air Nasal Cannula Nasal Cannula O2 Flow Rate 2.0 3.0 3.0 04/21/17 04/22/17 04/22/17 04/22/17 23:44 03:05 07:00 08:00 Temp 98.3 98.0 97.9 98.3 98.0 97.9 Pulse 73 75 100 Resp 17 21 20 B/P (MAP) 95/51 (66) 151/55 (87) 104/57 (73) Pulse Ox 100 99 99 O2 Delivery Nasal Cannula Nasal Cannula Nasal Cannula Nasal Cannula O2 Flow Rate 3.0 3.0 3.0 04/22/17 04/22/17 08:22 11:10 Temp 97.7 97.7 Pulse 100 88 Resp 17 B/P (MAP) 104/57 95/50 (65) Pulse Ox 91 O2 Delivery Nasal Cannula Intake and Output 04/21/17 04/21/17 04/22/17 15:00 23:00 07:00 Intake Total 120 ml 300 ml Output Total 600 ml 800 ml 500 ml Balance -480 ml -800 ml -200 ml KALYN GORDON MD Apr 22, 2017 12:43
[2017-04-22 15:10] VITALS: BP 96/53
[2017-04-22] MEDS: WARFARIN 2 MG TABLET. PO SCH (15:13)
[2017-04-22] MEDS: WARFARIN 2.5 MG TABLET. PO SCH (15:13)
[2017-04-22 19:26] VITALS: BP 102/48
[2017-04-22] MEDS: cycloSPORINE 0.05% OPTH 1 DROP DROPERETTE OU SCH (21:52)
[2017-04-22] MEDS: rOPINIRole 0.25 MG TABLET. PO SCH (21:52)
[2017-04-22 23:17] VITALS: BP 94/47
[2017-04-23 03:55] VITALS: BP 100/53
[2017-04-23 05:52] LABS: PROTHROMBIN TIME PATIENT 21.3 SEC (11.7-14.0)
[2017-04-23 07:20] VITALS: BP 117/73
[2017-04-23] MEDS: FLUTICASONE 50MCG/NASAL SPRAY 16GM BOTTLE. NS SCH (08:08)
[2017-04-23] MEDS: DOCUSATE SODIUM 100 MG CAPSULE. PO SCH (08:08)
[2017-04-23] MEDS: GABAPENTIN 300 MG CAPSULE. PO SCH ×3 (08:08→21:55)
[2017-04-23] MEDS: FUROSEMIDE 20 MG TABLET PO SCH ×2 (08:08→14:04)
[2017-04-23] MEDS: OMEGA-3 FATTY ACIDS/FISH OIL 1,000 MG CAPSULE. PO SCH (08:08)
[2017-04-23] MEDS: METOPROLOL TART IMMED RELEASE 25 MG TABLET. PO SCH ×2 (08:09→21:59)
[2017-04-23] MEDS: SERTRALINE 25 MG TABLET. PO SCH (08:09)
[2017-04-23 11:00] VITALS: BP 97/63
--- NOTE | 2017-04-23 12:40 | PDOC ---
PROGRESS NOTES Chief Complaint Chief Complaint CHF UTI ASSESSMENT AND PLAN: 1. CHF: echo with EF 10-15%,medical optimization, continue current care. d/w pt and her daughter at bed side, all questions answered, I recommend them to talk to cardiology about heart failure and further plans. I reviewed her old records. 2. Guillain-[place]: initial event in Jul 2016, but persisting neurological compromise making her full assist. 3. UTI: empiric ceftriaxone. await culture 3. Chronic pain, Restless leg syndrome: cont home medications. 4. Depression: on Sertraline 5. Dispo: back to [facility] [place] when stable. total time spent is 35 min for exam, counselling. History of Present Illness History of Present Illness d/w family, plan explained no acute issues resting in bed Vitals Vitals Vital Signs Date Time Temp Pulse Resp B/P (MAP) Pulse Ox O2 Delivery O2 Flow Rate FiO2 04/23/17 11:00 97.5 109 18 97/63 (74) 97 Nasal Cannula 3.0 97.5 Physical Exam General: Alert, Oriented X3, Cooperative, No acute distress Heart: Normal S1, Normal S2, Other Lungs: Clear Abdomen: Normal bowel sounds Extremities: No clubbing, Normal pulses, Other (trace bilateral LE edema ) Skin: No significant lesion Labs LABS Laboratory Tests Test 04/23/17 05:00 Prothrombin Time 21.3 SEC (11.7-14.0) Prothromb Time International Ratio 2.0 (0.8-1.1) Comment Review of Relevant I have reviewed the following items nina (where applicable) has been applied. Labs Laboratory Tests Test 04/21/17 14:40 04/22/17 05:00 04/23/17 05:00 Prothrombin Time 24.1 SEC (11.7-14.0) 21.7 SEC (11.7-14.0) 21.3 SEC (11.7-14.0) Prothromb Time International Ratio 2.3 (0.8-1.1) 2.0 (0.8-1.1) 2.0 (0.8-1.1) Laboratory Tests Test 04/23/17 05:00 Prothrombin Time 21.3 SEC (11.7-14.0) Prothromb Time International Ratio 2.0 (0.8-1.1) Microbiology 04/20/17 Urine Culture - Final, Complete 04/20/17 Urine Culture Result 1 (TAYLER) - Final, Complete Medications Current Medications Iohexol (Omnipaque 300 Mg/ml) 75 ml 1X ONCE IV Last administered on 04/19/17 21:22; Start 04/19/17 at 21:30; Stop 04/19/17 at 21:31; Status DC Info (Do NOT chart on this entry -- for MONITORING) 1 each PRN DAILY PRN MC SEE COMMENTS; Start 04/19/17 at 21:15; Stop 04/21/17 at 21:14; Status DC Fentanyl Citrate (Fentanyl 2ml Vial) 25 mcg 1X ONCE IV Last administered on 21:17; Start 04/19/17 at 21:30; Stop 04/19/17 at 21:31; Status DC Ondansetron HCl (Zofran) 4 mg 1X ONCE IV Last administered on 04/19/17 21:20; Start 04/19/17 at 21:30; Stop 04/19/17 at 21:31; Status DC Ondansetron HCl (Zofran) 4 mg PRN Q8HRS PRN IV NAUSEA/VOMITING; Start 04/19/17 at 23:00; Stop 04/20/17 at 22:59; Status DC Fentanyl Citrate (Fentanyl 2ml Vial) 50 mcg PRN Q1HR PRN IV SEVERE PAIN; Start 04/19/17 at 23:00; Stop 04/20/17 at 22:59; Status DC Aspirin (Ecotrin) 325 mg 1X ONCE PO Last administered on 04/20/17 01:19; Start 04/20/17 at 01:00; Stop 04/20/17 at 01:01; Status DC Furosemide (Lasix) 20 mg BID92 PO Last administered on 04/23/17 08:08; Start 04/20/17 at 10:30 Metoprolol Tartrate (Lopressor) 6.25 mg BID PO Last administered on 04/23/17 08:09; Start 04/20/17 at 10:30 Acetaminophen (Tylenol) 650 mg PRN Q4HRS PRN PO PAIN; Start 04/20/17 at 13:00 Cyclosporine (Restasis) 1 drop HS OU Last administered on 04/22/17 21:52; Start 04/20/17 at 21:00 Docusate Sodium (Colace) 100 mg DAILY PO Last administered on 04/23/17 08:08; Start 04/20/17 at 14:00 Ondansetron HCl (Zofran Odt) 4 mg PRN Q6HRS PRN PO nausea; Start 04/20/17 at 13: 00 Polyethylene Glycol (miraLAX PACKET) 17 gm PRN DAILY PRN PO CONSTIPATION; Start 04/20/17 at 13:00 Sertraline HCl (Zoloft) 75 mg DAILY PO Last administered on 04/23/17 08:09; Start 04/20/17 at 14:00 Warfarin Sodium (Coumadin) 2 mg 1X WARF PO Last administered on 04/20/17 17:09 ; Start 04/20/17 at 16:00; Stop 04/21/17 at 14:27; Status DC Warfarin Sodium (Coumadin) 2.5 mg DAILY16 PO Last administered on 04/22/17 15: 13; Start 04/21/17 at 16:00 Artificial Tears (Artificial Tears) 1 drop PRN Q15MIN PRN OU DRY EYE; Start 04/20/17 at 14:00 Fluticasone Propionate (Flonase) 2 spray DAILY NS Last administered on 08:08; Start 04/20/17 at 14:00 Gabapentin (Neurontin) 600 mg TID PO Last administered on 04/23/17 08:08; Start 04/20/17 at 14:00 Fish Oil (Fish Oil) 2,000 mg DAILY PO Last administered on 04/23/17 08:08; Start 04/20/17 at 14:00 Ropinirole HCl (Requip) 0.5 mg QHS PO Last administered on 04/22/17 21:52; Start 04/20/17 at 21:00 Warfarin Sodium (Coumadin Per Physician) 1 each PRN DAILY PRN MC SEE COMMENTS; Start 04/20/17 at 13:45; Stop 04/21/17 at 14:27; Status DC Warfarin Sodium (Coumadin) 2 mg DAILY16 PO Last administered on 04/22/17 15:13 ; Start 04/21/17 at 16:00 Warfarin Sodium (Coumadin Per Pharmacy) 1 each PRN DAILY PRN MC SEE COMMENTS Last administered on 04/23/17 11:17; Start 04/21/17 at 14:30 Active Scripts Active Coumadin (Warfarin Sodium) 2 Mg Tablet 2 Mg PO 1X WARF 30 Days Reported Pro-Stat Liquid (Amino Acids/Protein Hydrolys) 30 Ml Liquid.pkt 30 Ml PO BID Metoprolol Tartrate 25 Mg Tablet 6.25 Mg PO BID Lasix (Furosemide) 20 Mg Tablet 20 Mg PO BID Coumadin (Warfarin Sodium) 4 Mg Tablet 4.5 Mg PO DAILY Chlor-Trimeton (Chlorpheniramine Maleate) 4 Mg Tablet 4 Mg PO DAILY Artificial Tears Eye Drops (Dextran 70/Hypromellose) 15 Ml Drops 1 Drop EACHEYE PRN PRN Zoloft (Sertraline Hcl) 25 Mg Tablet 3 Tab PO DAILY Ondansetron Odt (Ondansetron) 4 Mg Tab.rapdis 1 Tab PO PRN Q6-8HRS Hydrocodone-Apap 5-325 (Hydrocodone Bit/Acetaminophen) 1 Each Tablet 0.5 Tab PO PRN Q6HRS PRN Gabapentin 300 Mg Capsule 600 Mg PO TID Colace (Docusate Sodium) 100 Mg Capsule 1 Cap PO DAILY Celebrex (Celecoxib) 200 Mg Capsule 1 Cap PO BID Restasis (Cyclosporine) 1 Each Droperette 1 Drop EACHEYE HS Flonase Allergy Relief (Fluticasone Propionate) 9.9 Ml [place].susp 2 Sprays NS DAILY Acetaminophen 325 Mg Tablet 650 Mg PO Q4HRS PRN [place] 3 Fish Oil Softgel ([place]-3 Fatty Acids/Fish Oil) 1 Each Capsule.dr 2 Each PO DAILY Miralax (Polyethylene Glycol 3350) 17 Gm Powd.pack 1 Packet PO DAILY PRN Requip (Ropinirole Hcl) 0.5 Mg Tablet 1 Tab PO QHS Vitals/I & O Vital Sign - Last 24 Hours 04/22/17 04/22/17 04/22/17 04/22/17 15:10 19:26 20:19 21:53 Temp 98.3 97.8 98.3 97.8 Pulse 93 102 96 Resp 20 21 B/P (MAP) 96/53 (67) 102/48 (66) 102/48 Pulse Ox 100 99 O2 Delivery Nasal Cannula Nasal Cannula Nasal Cannula O2 Flow Rate 3.0 3.0 04/22/17 04/23/17 04/23/17 04/23/17 23:17 03:55 07:20 08:00 Temp 97.7 97.4 97.5 97.7 97.4 97.5 Pulse 102 87 130 Resp 17 18 18 B/P (MAP) 94/47 (63) 100/53 (69) 117/73 (88) Pulse Ox 100 98 98 O2 Delivery Nasal Cannula Nasal Cannula Nasal Cannula Nasal Cannula O2 Flow Rate 3.0 3.0 3.0 3.0 04/23/17 04/23/17 08:09 11:00 Temp 97.5 97.5 Pulse 130 109 Resp 18 B/P (MAP) 117/73 97/63 (74) Pulse Ox 97 O2 Delivery Nasal Cannula O2 Flow Rate 3.0 Intake and Output 04/22/17 04/22/17 04/23/17 15:00 23:00 07:00 Intake Total 150 ml Output Total 950 ml 0 ml Balance -950 ml 150 ml KALYN GORDON MD Apr 23, 2017 12:40
[2017-04-23 15:10] VITALS: BP 94/56
[2017-04-23] MEDS: WARFARIN 2 MG TABLET. PO SCH (16:39)
[2017-04-23] MEDS: WARFARIN 2.5 MG TABLET. PO SCH (16:39)
[2017-04-23 19:50] VITALS: BP 108/64
[2017-04-23] MEDS: rOPINIRole 0.25 MG TABLET. PO SCH (21:55)
[2017-04-23] MEDS: cycloSPORINE 0.05% OPTH 1 DROP DROPERETTE OU SCH (21:55)
[2017-04-23 23:20] VITALS: BP 93/60
[2017-04-24 03:40] VITALS: BP 96/47
[2017-04-24 04:54] LABS: PROTHROMBIN TIME PATIENT 21.4 SEC (11.7-14.0)
[2017-04-24 07:00] VITALS: BP 100/64
[2017-04-24] MEDS: FLUTICASONE 50MCG/NASAL SPRAY 16GM BOTTLE. NS SCH (08:43)
[2017-04-24] MEDS: DOCUSATE SODIUM 100 MG CAPSULE. PO SCH (08:43)
[2017-04-24] MEDS: GABAPENTIN 300 MG CAPSULE. PO SCH ×3 (08:43→21:59)
[2017-04-24] MEDS: FUROSEMIDE 20 MG TABLET PO SCH ×2 (08:44→16:05)
[2017-04-24] MEDS: SERTRALINE 25 MG TABLET. PO SCH (08:44)
[2017-04-24] MEDS: OMEGA-3 FATTY ACIDS/FISH OIL 1,000 MG CAPSULE. PO SCH (08:44)
[2017-04-24] MEDS: METOPROLOL TART IMMED RELEASE 25 MG TABLET. PO SCH ×2 (08:45→22:00)
[2017-04-24 11:00] VITALS: BP 94/49
--- NOTE | 2017-04-24 11:19 | PDOC ---
PROGRESS NOTES Chief Complaint Chief Complaint CHF UTI ASSESSMENT AND PLAN: 1. CHF: echo with EF 10-15%,medical optimization, continue current care.I recommend them to talk to cardiology about heart failure and further plans. I reviewed her old records. 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 3. UTI: empiric ceftriaxone. await culture 3. Chronic pain, Restless leg syndrome: cont home medications. 4. Depression: on Sertraline 5. Dispo: back to [facility] when stable. History of Present Illness History of Present Illness no fever no acute events no chest pain Vitals Vitals Vital Signs Date Time Temp Pulse Resp B/P (MAP) Pulse Ox O2 Delivery O2 Flow Rate FiO2 04/24/17 11:00 98.6 91 18 94/49 (64) 96 Nasal Cannula 3.0 98.6 Physical Exam General: Alert, Oriented X3, Cooperative, No acute distress Heart: Normal S1, Normal S2, Other Lungs: Clear Abdomen: Normal bowel sounds Extremities: No clubbing, Normal pulses, Other (trace bilateral LE edema ) Skin: No significant lesion Labs LABS Laboratory Tests Test 04/24/17 04:15 Prothrombin Time 21.4 SEC (11.7-14.0) Prothromb Time International Ratio 2.0 (0.8-1.1) Comment Review of Relevant I have reviewed the following items nina (where applicable) has been applied. Labs Laboratory Tests Test 04/23/17 05:00 04/24/17 04:15 Prothrombin Time 21.3 SEC (11.7-14.0) 21.4 SEC (11.7-14.0) Prothromb Time International Ratio 2.0 (0.8-1.1) 2.0 (0.8-1.1) Laboratory Tests Test 04/24/17 04:15 Prothrombin Time 21.4 SEC (11.7-14.0) Prothromb Time International Ratio 2.0 (0.8-1.1) Microbiology 04/20/17 Urine Culture - Final, Complete 04/20/17 Urine Culture Result 1 (TAYLER) - Final, Complete Medications Current Medications Iohexol (Omnipaque 300 Mg/ml) 75 ml 1X ONCE IV Last administered on 04/19/17t 21:22; Start 04/19/17 at 21:30; Stop 04/19/17 at 21:31; Status DC Info (Do NOT chart on this entry -- for MONITORING) 1 each PRN DAILY PRN MC SEE COMMENTS; Start 04/19/17 at 21:15; Stop 04/21/17 at 21:14; Status DC Fentanyl Citrate (Fentanyl 2ml Vial) 25 mcg 1X ONCE IV Last administered on 21:17; Start 04/19/17 at 21:30; Stop 04/19/17 at 21:31; Status DC Ondansetron HCl (Zofran) 4 mg 1X ONCE IV Last administered on 04/19/17 21:20; Start 04/19/17 at 21:30; Stop 04/19/17 at 21:31; Status DC Ondansetron HCl (Zofran) 4 mg PRN Q8HRS PRN IV NAUSEA/VOMITING; Start 04/19/17 at 23:00; Stop 04/20/17 at 22:59; Status DC Fentanyl Citrate (Fentanyl 2ml Vial) 50 mcg PRN Q1HR PRN IV SEVERE PAIN; Start 04/19/17 at 23:00; Stop 04/20/17 at 22:59; Status DC Aspirin (Ecotrin) 325 mg 1X ONCE PO Last administered on 04/20/17 01:19; Start 04/20/17 at 01:00; Stop 04/20/17 at 01:01; Status DC Furosemide (Lasix) 20 mg BID92 PO Last administered on 04/24/17 08:44; Start 04/20/17 at 10:30 Metoprolol Tartrate (Lopressor) 6.25 mg BID PO Last administered on 04/24/17 08:45; Start 04/20/17 at 10:30 Acetaminophen (Tylenol) 650 mg PRN Q4HRS PRN PO PAIN; Start 04/20/17 at 13:00 Cyclosporine (Restasis) 1 drop HS OU Last administered on 04/23/17 21:55; Start 04/20/17 at 21:00 Docusate Sodium (Colace) 100 mg DAILY PO Last administered on 04/24/17 08:43; Start 04/20/17 at 14:00 Ondansetron HCl (Zofran Odt) 4 mg PRN Q6HRS PRN PO nausea; Start 04/20/17 at 13: 00 Polyethylene Glycol (miraLAX PACKET) 17 gm PRN DAILY PRN PO CONSTIPATION; Start 04/20/17 at 13:00 Sertraline HCl (Zoloft) 75 mg DAILY PO Last administered on 04/24/17 08:44; Start 04/20/17 at 14:00 Warfarin Sodium (Coumadin) 2 mg 1X WARF PO Last administered on 04/20/17 17:09 ; Start 04/20/17 at 16:00; Stop 04/21/17 at 14:27; Status DC Warfarin Sodium (Coumadin) 2.5 mg DAILY16 PO Last administered on 04/23/17 16: 39; Start 04/21/17 at 16:00 Artificial Tears (Artificial Tears) 1 drop PRN Q15MIN PRN OU DRY EYE; Start 04/20/17 at 14:00 Fluticasone Propionate (Flonase) 2 spray DAILY NS Last administered on 08:43; Start 04/20/17 at 14:00 Gabapentin (Neurontin) 600 mg TID PO Last administered on 04/24/17 08:43; Start 04/20/17 at 14:00 Fish Oil (Fish Oil) 2,000 mg DAILY PO Last administered on 04/24/17 08:44; Start 04/20/17 at 14:00 Ropinirole HCl (Requip) 0.5 mg QHS PO Last administered on 04/23/17 21:55; Start 04/20/17 at 21:00 Warfarin Sodium (Coumadin Per Physician) 1 each PRN DAILY PRN MC SEE COMMENTS; Start 04/20/17 at 13:45; Stop 04/21/17 at 14:27; Status DC Warfarin Sodium (Coumadin) 2 mg DAILY16 PO Last administered on 04/23/17 16:39 ; Start 04/21/17 at 16:00 Warfarin Sodium (Coumadin Per Pharmacy) 1 each PRN DAILY PRN MC SEE COMMENTS Last administered on 04/23/17 11:17; Start 04/21/17 at 14:30 Active Scripts Active Coumadin (Warfarin Sodium) 2 Mg Tablet 2 Mg PO 1X WARF 30 Days Reported Pro-Stat Liquid (Amino Acids/Protein Hydrolys) 30 Ml Liquid.pkt 30 Ml PO BID Metoprolol Tartrate 25 Mg Tablet 6.25 Mg PO BID Lasix (Furosemide) 20 Mg Tablet 20 Mg PO BID Coumadin (Warfarin Sodium) 4 Mg Tablet 4.5 Mg PO DAILY Chlor-Trimeton (Chlorpheniramine Maleate) 4 Mg Tablet 4 Mg PO DAILY Artificial Tears Eye Drops (Dextran 70/Hypromellose) 15 Ml Drops 1 Drop EACHEYE PRN PRN Zoloft (Sertraline Hcl) 25 Mg Tablet 3 Tab PO DAILY Ondansetron Odt (Ondansetron) 4 Mg Tab.rapdis 1 Tab PO PRN Q6-8HRS Hydrocodone-Apap 5-325 (Hydrocodone Bit/Acetaminophen) 1 Each Tablet 0.5 Tab PO PRN Q6HRS PRN Gabapentin 300 Mg Capsule 600 Mg PO TID Colace (Docusate Sodium) 100 Mg Capsule 1 Cap PO DAILY Celebrex (Celecoxib) 200 Mg Capsule 1 Cap PO BID Restasis (Cyclosporine) 1 Each Droperette 1 Drop EACHEYE HS Flonase Allergy Relief (Fluticasone Propionate) 9.9 Ml [place].susp 2 Sprays NS DAILY Acetaminophen 325 Mg Tablet 650 Mg PO Q4HRS PRN [place] 3 Fish Oil Softgel ([place]-3 Fatty Acids/Fish Oil) 1 Each Capsule.dr 2 Each PO DAILY Miralax (Polyethylene Glycol 3350) 17 Gm Powd.pack 1 Packet PO DAILY PRN Requip (Ropinirole Hcl) 0.5 Mg Tablet 1 Tab PO QHS Vitals/I & O Vital Sign - Last 24 Hours 04/23/17 04/23/17 04/23/17 04/23/17 15:10 19:50 20:00 21:59 Temp 98.2 98.5 98.2 98.5 Pulse 106 100 103 Resp 18 18 B/P (MAP) 94/56 (69) 108/64 (79) 104/56 Pulse Ox 98 98 O2 Delivery Nasal Cannula Nasal Cannula Nasal Cannula O2 Flow Rate 3.0 3.0 3.0 04/23/17 04/24/17 04/24/17 04/24/17 23:20 03:40 07:00 08:00 Temp 98.5 97.9 97.7 98.5 97.9 97.7 Pulse 89 90 123 Resp 18 20 17 B/P (MAP) 93/60 (71) 96/47 (63) 100/64 (76) Pulse Ox 95 99 97 O2 Delivery Nasal Cannula Nasal Cannula Nasal Cannula Nasal Cannula O2 Flow Rate 3.0 3.0 3.0 3.0 04/24/17 04/24/17 08:45 11:00 Temp 98.6 98.6 Pulse 123 91 Resp 18 B/P (MAP) 100/64 94/49 (64) Pulse Ox 96 O2 Delivery Nasal Cannula O2 Flow Rate 3.0 Intake and Output 04/23/17 04/23/17 04/24/17 15:00 23:00 07:00 Intake Total 320 ml 120 ml Output Total 200 ml 850 ml 400 ml Balance -200 ml -530 ml -280 ml KALYN GORDON MD Apr 24, 2017 11:19
[2017-04-24 15:00] VITALS: BP 93/44
[2017-04-24] MEDS: WARFARIN 2.5 MG TABLET. PO SCH (16:08)
[2017-04-24] MEDS: WARFARIN 2 MG TABLET. PO SCH (16:09)
--- NOTE | 2017-04-24 16:40 | PDOC ---
CARDIO Progress Notes Date and Time Date of Service 04/24/17 Time of Evaluation 1345 Subjective Subjective: No Chest Pain, No shortness of breath, No Palpitations, No Dizziness Vitals Vitals Vital Signs Date Time Temp Pulse Resp B/P (MAP) Pulse Ox O2 Delivery O2 Flow Rate FiO2 04/24/17 15:00 98.3 99 18 93/44 (60) 100 Nasal Cannula 3.0 98.3 Weight Weight [ ] Input and Output Intake and Output Intake and Output 04/24/17 06:59 Intake Total 440 ml Output Total 1450 ml Balance -1010 ml Intake Oral 440 ml Output Urine Total 1450 ml Laboratory Labs Laboratory Tests Test 04/24/17 04:15 Prothrombin Time 21.4 SEC (11.7-14.0) Prothromb Time International Ratio 2.0 (0.8-1.1) Microbiology Micro Microbiology 04/20/17 Urine Culture - Final, Complete 04/20/17 Urine Culture Result 1 (TAYLER) - Final, Complete Physical Exam HEENT: Neck Supple W Full Motion Chest: Symmetric LUNGS: Clear to Auscultation Heart: S1S2, RRR, irregularly irregular (tele AFIB rate 90-100) Abdomen: Soft N/T Extremities: No Edema, No Calf Tenderness Neurology: alert, oriented, follow commands, confused (intermittently ) Assessment Assessment 1. 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 2. AFIB, chronic continue BB. If HR consistently >115, will give dose of Digoxin 0.125mg IV x1. on warfarin for stroke prophylaxis 3. Hypertension low-normotensive 4. Hyperlipidemia lipids on goal 5. 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
[2017-04-24 19:35] VITALS: BP 89/47
[2017-04-24] MEDS: rOPINIRole 0.25 MG TABLET. PO SCH (22:00)
[2017-04-24] MEDS: cycloSPORINE 0.05% OPTH 1 DROP DROPERETTE OU SCH (22:00)
[2017-04-24 23:10] VITALS: BP 97/52
[2017-04-25 03:30] VITALS: BP 104/47
[2017-04-25 06:31] LABS: PROTHROMBIN TIME PATIENT 21.1 SEC (11.7-14.0)
[2017-04-25 07:25] VITALS: BP 115/64
[2017-04-25] MEDS: FLUTICASONE 50MCG/NASAL SPRAY 16GM BOTTLE. NS SCH (08:51)
[2017-04-25] MEDS: DOCUSATE SODIUM 100 MG CAPSULE. PO SCH (08:51)
[2017-04-25] MEDS: METOPROLOL TART IMMED RELEASE 25 MG TABLET. PO SCH (08:53)
[2017-04-25] MEDS: GABAPENTIN 300 MG CAPSULE. PO SCH ×2 (08:53→14:14)
[2017-04-25] MEDS: SERTRALINE 25 MG TABLET. PO SCH (08:55)
[2017-04-25] MEDS: FUROSEMIDE 20 MG TABLET PO SCH ×2 (08:55→14:14)
[2017-04-25] MEDS: OMEGA-3 FATTY ACIDS/FISH OIL 1,000 MG CAPSULE. PO SCH (08:55)
[2017-04-25 11:00] VITALS: BP 97/47
--- NOTE | 2017-04-25 12:08 | PDOC3 ---
Discharge Summary [facility] Date of Admission: Apr 19, 2017 Discharge Date: Apr 25, 2017 Admitting Diagnosis 1. 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 3. UTI 3. Chronic pain, Restless leg syndrome: cont home medications. 4. Depression: on Sertraline Problems: CONSULTS card Brief Hospital Course Ms. Barragan is a 86 old F, GBS, severe CHF, with EF only 10%, [facility], family decided to cont only medical treatment [facility], metoprolol for afib, still on caumadin. pt feels ok now, no sob or chest pain. pt is not DNR, only DNI, recommend [facility] to cont discuss with family for DNR, and might not cont caumadin for her. dc time 35min. General: Alert, Oriented X3, Cooperative, No acute distress Heart: Normal S1, Normal S2, Other Lungs: Clear Abdomen: Normal bowel sounds Extremities: No clubbing, Normal pulses, Other (trace bilateral LE edema ) Skin: No significant lesion Patient History: FH: breast cancer mother sister maternal grand father Problems: Disposition inpt hospice CONDITION AT DISCHARGE: Improved Diet cardiac Scheduled Amino Acids/Protein Hydrolys (Pro-Stat Liquid), 30 ML PO BID, (Reported) Celecoxib (Celebrex), 1 CAP PO BID, (Reported) Chlorpheniramine Maleate (Chlor-Trimeton), 4 MG PO DAILY, (Reported) Cyclosporine (Restasis), 1 DROP EACHEYE HS, (Reported) Docusate Sodium (Colace), 1 CAP PO DAILY, (Reported) Fluticasone Propionate (Flonase Allergy Relief), 2 SPRAYS NS DAILY, (Reported) Furosemide (Lasix), 20 MG PO BID, (Reported) Gabapentin (Gabapentin), 600 MG PO TID, (Reported) Metoprolol Tartrate (Metoprolol Tartrate), 6.25 MG PO BID, (Reported) [place]-3 Fatty Acids/Fish Oil ([place] 3 Fish Oil Softgel), 2 EACH PO DAILY, ( Reported) Ondansetron (Ondansetron Odt), 1 TAB PO PRN Q6-8HRS, (Reported) Ropinirole Hcl (Requip), 1 TAB PO QHS, (Reported) Sertraline Hcl (Zoloft), 3 TAB PO DAILY, (Reported) Warfarin Sodium (Coumadin), 4.5 MG PO DAILY, (Reported) Scheduled PRN Acetaminophen (Acetaminophen), 650 MG PO Q4HRS PRN for PAIN, (Reported) Dextran 70/Hypromellose (Artificial Tears Eye Drops), 1 DROP EACHEYE PRN PRN for DRY EYE, (Reported) Hydrocodone Bit/Acetaminophen (Hydrocodone-Apap 5-325 ), 0.5 TAB PO PRN Q6HRS PRN for PAIN, (Reported) Polyethylene Glycol 3350 (Miralax), 1 PACKET PO DAILY PRN for CONSTIPATION, ( Reported) Discontinued Medications Lisinopril (Lisinopril), 1 TAB PO HS, (Reported) Warfarin Sodium (Coumadin), 2 MG PO 1X WARF Follow Up pcp in 2 weeks SAGAR MADRIGAL MD Apr 25, 2017 12:07
== END 2017-04-25 15:16 | disposition hospice, inpatient (51) | DRG 292 ==
LOC: ER 18:41 → 2 SOUTH 22:55
PROVIDERS: ADMIT Internal Medicine; ATTEND Internal Medicine
DX: I50.43 Acute on chronic combined systolic (congestive) and diastolic (congestive) heart failure (principal); G61.0 Guillain-Barre syndrome; N39.0 Urinary tract infection, site not specified; I42.9 Cardiomyopathy, unspecified; I48.0 Paroxysmal atrial fibrillation; I11.0 Hypertensive heart disease with heart failure; G47.33 Obstructive sleep apnea (adult) (pediatric); G25.81 Restless legs syndrome; G89.29 Other chronic pain; F32.9 Major depressive disorder, single episode, unspecified; E78.5 Hyperlipidemia, unspecified; M19.90 Unspecified osteoarthritis, unspecified site; I95.9 Hypotension, unspecified; Z51.5 Encounter for palliative care; Z79.01 Long term (current) use of anticoagulants; Z79.899 Other long term (current) drug therapy; Z80.3 Family history of malignant neoplasm of breast; Z85.3 Personal history of malignant neoplasm of breast; Z90.11 Acquired absence of right breast and nipple; Z90.49 Acquired absence of other specified parts of digestive tract; Z91.19 Patient's noncompliance with other medical treatment and regimen; Z99.3 Dependence on wheelchair; Z88.0 Allergy status to penicillin; Z88.2 Allergy status to sulfonamides
CPT/HCPCS: 36415; 71010; 71275; 80048; 80053; 80061; 81001; 82550; 84443; 84484; 85027; 85610; 87086; 93005; 93306; 96374; 96375; J2405; J3010; Q9967; 99285-25